=== PATIENT | female | born 1950 | race Hispanic/Latino ===

== ENCOUNTER 2019-11-05 08:38 | Emergency (ER) | payer SELFPAY ==
[~2019-11-05] VITALS: Ht 160 cm; Wt 78.0 kg
[~2019-11-05 08:38] MED LIST: CEPHALEXIN500 M1 OR; ROBITUSSIN AC10 ML OR
[2019-11-05 09:09] LABS: HEMATOCRIT 36.4 % (37.0-47.0); HEMOGLOBIN 11.9 g/dl (12.0-16.0); IMMATURE GRANULOCYTES 0.6 % (0.0-5.0); MEAN CELL VOLUME 93.1 fL CALC (80.0-100.0); MEAN CORPUSCULAR HGB 30.4 pG CALC (26.0-32.0); MEAN CORPUSCULAR HGB CONC 32.7 g/dL CAL (32.0-36.0); NEUT# 2.59 thou/uL (2.00-7.15); RED BLOOD COUNT 3.91 mill/uL (4.20-5.60); RED CELL DISTRI WIDTH 13.3 % (11.5-15.5)
[2019-11-05 09:24] LABS: ALBUMIN 4.4 g/dL (3.2-5.0); ALKALINE PHOSPHATASE 121 u/l (38-126); AMYLASE 93 u/l (30-110); ANION GAP 12 (6-22 (CALC)); BUN 20 mg/dL (8-23); BUN/CREATININE RATIO 30 (12-20 (CALC)); CARBON DIOXIDE 28 mmol/l (22-30); CHLORIDE 103 mmol/l (95-108); CREATININE 0.7 mg/dL (0.5-1.0); GFR > 60 ML/MIN (>=60 (CALC)); GFR FOR AFR.AMER. > 60 ML/MIN (>=60 (CALC)); LIPASE 110 u/l (23-300); POTASSIUM 3.5 mmol/l (3.5-5.1); SGOT/AST 26 u/l (9-36); SODIUM 139 mmol/l (137-146); TOTAL PROTEIN 7.5 g/dL (6.3-8.2)
[2019-11-05 09:25] LABS: BILIRUBIN, TOTAL 0.3 mg/dL (0.0-1.4)
[2019-11-05 09:35] LABS: MYOGLOBIN 16 ng/mL (0 - 62)
[2019-11-05 10:29] LABS: URINE BILIRUBIN - DIPSTICK NEGATIVE (NEGATIVE); URINE BLOOD DIPSTICK NEGATIVE (NEGATIVE); URINE COLOR YELLOW; URINE GLUCOSE - DIPSTICK NEGATIVE (NEGATIVE); URINE KETONE NEGATIVE (NEGATIVE); URINE LEUK ESTERASE NEGATIVE (NEGATIVE); URINE NITRITE - DIPSTICK NEGATIVE (Negative); URINE PROTEIN - DIPSTICK NEGATIVE (NEG-TRACE); URINE UROBILINOGEN - DIPSTICK 0.2 E.U./dL (0.2)
[2019-11-05] MEDS ORDERED: MECLIZINE25 MG PO (11:27)
[2019-11-05] MEDS ORDERED: ONDANSETRON4 MG PO (11:27)
[2019-11-05 13:30] VITALS: BP 115/49
== END 2019-11-05 13:30 | disposition home or self-care (01) | DRG 149 ==
LOC: ED 08:38
PROVIDERS: Emergency Medicine
DX: R42 Dizziness and giddiness (principal); I10 Essential (primary) hypertension; Z20.828 Contact with and (suspected) exposure to other viral communicable diseases

== ENCOUNTER 2021-04-20 11:31 | Observation (INO) | payer MEDICARE, MEDICAID ==
[~2021-04-20] VITALS: Ht 160 cm; Wt 75.0 kg
[~2021-04-20 11:31] MED LIST changes: +MECLIZINE25 MG PO; +ONDANSETRON4 MG PO
--- NOTE | 2021-04-20 11:45 | NUR ---
PATIENT TO ROOM 11
[2021-04-20 12:19] LABS: HEMATOCRIT 39.7 % (37.0-47.0); HEMOGLOBIN 12.9 g/dl (12.0-16.0); IMMATURE GRANULOCYTES 0.2 % (0.0-5.0); MEAN CELL VOLUME 95.2 fL CALC (80.0-100.0); MEAN CORPUSCULAR HGB 30.9 pG CALC (26.0-32.0); MEAN CORPUSCULAR HGB CONC 32.5 g/dL CAL (32.0-36.0); NEUT# 2.21 thou/uL (2.00-7.15); RED BLOOD COUNT 4.17 mill/uL (4.20-5.60); RED CELL DISTRI WIDTH 13.1 % (11.5-15.5)
[2021-04-20 12:33] LABS: ALBUMIN 4.7 g/dL (3.2-5.0); ALKALINE PHOSPHATASE 96 u/l (38-126); BILIRUBIN, TOTAL 0.4 mg/dL (0.0-1.4); BUN 20 mg/dL (8-23); BUN/CREATININE RATIO 28 (12-20 (CALC)); CARBON DIOXIDE 28 mmol/l (22-30); CHLORIDE 102 mmol/l (95-108); CREATININE 0.7 mg/dL (0.5-1.0); GFR > 60 ML/MIN (>=60 (CALC)); GFR FOR AFR.AMER. > 60 ML/MIN (>=60 (CALC)); SGOT/AST 40 u/l (9-36); SODIUM 140 mmol/l (137-146); TOTAL PROTEIN 8.3 g/dL (6.3-8.2)
[2021-04-20 12:37] LABS: ANION GAP 14 (6-22 (CALC)); POTASSIUM 4.4 mmol/l (3.5-5.1)
[2021-04-20] MEDS ORDERED: ENALAPRIL10 MG PO (13:14)
--- NOTE | 2021-04-20 14:16 | NUR ---
PATIENT ASSISTED TO THE BATHROOM
--- NOTE | 2021-04-20 15:35 | NUR ---
REPORT GIVEN TO MEDICAL/SURGICAL NURSE PAMELLA KO
--- NOTE | 2021-04-20 16:28 | NUR ---
UPDATED DR LR ON PTS COVID + STATUS
--- NOTE | 2021-04-20 17:15 | NUR ---
PATIENT TO ROOM 268
[2021-04-20 17:44] VITALS: BP 174/82
--- NOTE | 2021-04-20 17:45 | NUR ---
nurse notified of patient blood pressure.
--- NOTE | 2021-04-20 18:05 | NUR ---
REPORT RECEIVED FROM SPEEDY IN ED, PT ARRIVED ON UNNIT @ 1734 TRANSPORTED VIA W/C AND SETTLED IN ROOM. ALERT AND ORIENTED X 3, ORIENTED TO ROOM AND CALL JOHN, C/O CHEST/EPIGASTRIC PAIN @ 05/31, TELE MONITOR IN PLACE, CALL JOHN IN REACH AND BED LOCKED IN LOWEST POSITION.
[2021-04-20 18:21] VITALS: BP 153/76
[2021-04-20 19:40] VITALS: BP 155/83
--- NOTE | 2021-04-20 19:59 | NUR ---
REPORT GIVEN BY PAMELLA. PATIENT RESTING IN BED WATCHING TV. RESP EVEN AND UNLABORED. NO S/S OF DISTRESS NOTED. FALL AND SAFTEY PRECAUTIONS IN PLACE. PLAN OF CARE DISCUSSED. IV SALINE LOCKED. NSR ON TELE. COVID POSITIVE. PATIENT INFORMED TO CALL WITH ANY QUESTIONS OR CONCERNS.
[2021-04-21] VITALS: BP 146/73
--- NOTE | 2021-04-21 01:23 | NUR ---
PATIENT RESTING WITH EYES CLOSED. RESP EVEN AND UNLABORED. NO S/S OF DISTRESS NOTED. FALL AND SAFTEY PRECAUTIONS IN PLACE.
[2021-04-21 04:00] VITALS: BP 146/82
[2021-04-21 06:14] LABS: HEMATOCRIT 40.5 % (37.0-47.0); HEMOGLOBIN 13.2 g/dl (12.0-16.0); MEAN CELL VOLUME 94.6 fL CALC (80.0-100.0); MEAN CORPUSCULAR HGB 30.8 pG CALC (26.0-32.0); MEAN CORPUSCULAR HGB CONC 32.6 g/dL CAL (32.0-36.0); RED BLOOD COUNT 4.28 mill/uL (4.20-5.60); RED CELL DISTRI WIDTH 12.9 % (11.5-15.5)
[2021-04-21 06:29] LABS: CHOLESTEROL HDL RATIO 6.7 (<4.4 (CALC)); CREATININE 1.1 mg/dL (0.5-1.0); MAGNESIUM 2.3 mg/dL (1.6-2.3); POTASSIUM 4.5 mmol/l (3.5-5.1)
[2021-04-21] MEDS ORDERED: MECLIZINE25 MG PO (11:14)
[2021-04-21 11:29] VITALS: BP 156/87
--- NOTE | 2021-04-21 12:54 | NUR ---
Discharge instructions given. Patient verbalizes understanding of same. Discharged in stable condition via Wheelchair to Home with staff. All belongings sent with pt.
--- NOTE | 2021-04-21 13:09 | NUR ---
PT LEFT VIA WC WITH CROWN PRESSER(WALE KO). PT IV 20G RAC SL REMOVED CATHETER FULLY INTACT. PT LEFT WITH ALL BELONGINGS.
== END 2021-04-21 12:45 | disposition home or self-care (01) ==
LOC: ED 11:31 → ED-I 13:30 → ED 14:33 → MS2 14:34
PROVIDERS: Family Medicine; ADMIT Hospitalist; ATTEND Hospitalist
DX: R07.89 Other chest pain (principal); I10 Essential (primary) hypertension; U07.1 COVID-19
CPT/HCPCS: G0378; J1650